=== PATIENT | female | born 1990 | race African-American/Black ===

== ENCOUNTER 2017-11-10 21:56 | Emergency (ER) | payer OTHER ==
[~2017-11-10] VITALS: Ht 165.1 cm; Wt 54.4 kg
[2017-11-10 22:06] VITALS: BP 120/64
--- NOTE | 2017-11-10 22:10 | NUR ---
TO BED 14 A 27 YO FEMALE PT BBSELF AND C/O ABSCESSES ON RIGHT FOREARM. PATIENT IS [id number], NAD NOTED. VSS. AFERBILE.
--- NOTE | 2017-11-10 23:01 | NUR ---
PAUL KIRKPATRICK AT BEDSIDE TO EVALUATE PATIENT.
[2017-11-10] MEDS ORDERED: DIPHENHYDRAMINE HCL 12.5 MG/5 ML UDC PO ONE (23:30)
[2017-11-10] MEDS ORDERED: predniSONE 20 MG TABLET PO ONE (23:30)
[2017-11-10] MEDS ORDERED: diphenhydrAMINE HCL 25 MG CAPSULE ONE (23:36)
[2017-11-10] MEDS ORDERED: predniSONE 20 MG TABLET ONE (23:37)
== END 2017-11-10 23:42 | disposition home or self-care (01) ==
LOC: ER 22:05
DX: S50.861A Insect bite (nonvenomous) of right forearm, initial encounter (principal); W57.XXXA Bitten or stung by nonvenomous insect and other nonvenomous arthropods, initial encounter; Y93.89 Activity, other specified; Y92.89 Other specified places as the place of occurrence of the external cause; Y99.8 Other external cause status
CPT/HCPCS: A4606; Q0163; Z7610